=== PATIENT | female | born 1960 | race Caucasian/White ===

== ENCOUNTER → 2019-06-29 13:41 | Outpatient (CLI) | payer OTHER, SELFPAY ==
--- NOTE | 2019-06-29 13:45 | DI.MRI.S_ITS ---
PROCEDURE: MR HEAD/BRAIN WO CON INDICATIONS: chronic daily headaches TECHNIQUE: Non-contrast axial T1 spin echo, axial T2 fast spin echo, sagittal and axial FLAIR, coronal T2 fast spin echo, axial gradient echo, axial diffusion and ADC through the brain. COMPARISON: None. FINDINGS: Image quality: Excellent. CSF spaces: Ventricles appear symmetric in size and shape. Basal cisterns are patent. No extra-axial fluid collections. Brain: No intracranial bleeds or mass effects. There is cerebral volume loss for age. There are periventricular and deep white matter chronic small vessel ischemic changes. Brainstem appears normal. Diffusion-weighted images show no acute ischemic insults. No chronic ischemic insults. Normal intravascular flow voids are present. Skull and face: Calvarial bone marrow is normal in signal. Orbits are normal. Sinuses: Sinuses and mastoids are clear. IMPRESSION: Unremarkable intracranial study, without an imaging explanation found for the patient's presenting history of headache. No masses or mass effect can be seen. No findings of acute or subacute infarction can be seen. Dictated by: Josue Scanlon M.D. on 06/29/2019 at 14:01 Approved by: Josue Scanlon M.D. on 06/29/2019 at 14:02
== END ==
PROVIDERS: PCP Internal Medicine; Visit Provider Family Medicine
DX: R51 Headache (principal)
CPT/HCPCS: 70551